=== PATIENT | male | born 1980 | race Hispanic/Latino ===

== ENCOUNTER 2018-08-26 21:56 | Emergency (ER) | payer SELFPAY ==
[~2018-08-26] VITALS: Ht 175.3 cm; Wt 193.2 kg
--- OUTSIDE RECORDS SUMMARY | 2018-08-26 21:59 | XMS REPORT ---
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 Allergies, Adverse Reactions, Alerts This patient has no known allergies or adverse reactions. Medications This patient has no known medications. Encounters Start Date/Time End Date/Time Encounter Type Admission Type Attending [facility] Care Department Encounter ID 2018-08-23 15:44:17 2018-08-23 15:44:17 Emergency [facility] MED [id number] 2018-08-20 00:00:00 2018-08-20 00:00:00 Outpatient [facility] [id number] 2018-07-26 00:00:00 2018-07-26 00:00:00 Outpatient [facility] [id number] 2018-06-07 00:00:00 2018-06-07 00:00:00 Outpatient [facility] [id number] 2018-04-25 00:00:00 2018-04-25 00:00:00 Outpatient [facility] [id number] 2018-04-05 09:55:41 2018-04-05 09:55:41 Outpatient [facility] [id number] 2018-04-05 08:50:48 2018-04-05 08:50:48 Outpatient [facility] [id number] 2018-03-01 10:01:47 2018-03-01 10:01:47 Outpatient [facility] [id number] 2018-02-17 03:42:24 2018-02-17 03:42:24 Emergency [facility] MED [id number] 2018-02-16 23:48:59 2018-02-16 23:48:59 Emergency [facility] [id number] 2018-02-16 22:10:34 2018-02-16 22:10:34 Emergency [facility] [id number] 2018-01-15 00:00:00 2018-01-15 00:00:00 Outpatient [facility] [id number] 2017-11-21 00:00:00 2017-11-21 00:00:00 Outpatient [facility] [id number] 2017-11-14 00:00:00 2017-11-14 00:00:00 Outpatient [facility] [id number] 2017-11-06 16:37:42 2017-11-06 16:37:42 Outpatient [facility] [id number] 2017-11-06 15:23:18 2017-11-06 15:23:18 Outpatient [facility] [id number] 2017-11-06 13:39:29 2017-11-06 13:39:29 Outpatient [facility] [id number] 2017-10-16 22:17:33 2017-10-16 22:17:33 Emergency [facility] [id number]
--- OUTSIDE RECORDS SUMMARY | 2018-08-26 21:59 | XMS REPORT | Clinical Summary ---
Author Author [facility] Organization [facility] Address Unknown Phone Unavailable Care Team Providers Care [place] Instructor Name Role Phone Christiano Miner MD PCP Allergies No Known Allergies Medications End Date Status Medication Sig Dispensed Refills Start Date Active pantoprazole (PROTONIX) Take 1 tablet 30 tablet 0 40 mg delayed release by mouth 2 tabletIndications: daily. Abdominal pain Active dicyclomine (BENTYL) 20 Take 1 tablet 20 tablet 0 mg tabletIndications: by mouth 3 2 Abdominal pain times daily as needed for Pain and Nausea. Active PHENTERMINE HCL 37.5 mg Take 37.5 mg 0 tablet by mouth every morning (before breakfast). Active furosemide (LASIX) 40 mg Take 40 mg by 0 tablet mouth daily. Active potassium chloride Take 20 mEq 0 (KLOR-CON) 20 mEq oral by mouth 2 packet times daily. Active amLODIPine (NORVASC) 10 Take 10 mg by 0 mg tablet mouth daily. Active ibuprofen (MOTRIN) 800 mg Take 1 tablet 60 tablet 1 tabletIndications: by mouth 8 Arthralgia, unspecified every 8 hours joint as needed for Pain. Active lisinopril (PRINIVIL) 20 Take 1 tablet 90 tablet 1 mg tabletIndications: by mouth 8 Essential hypertension daily. Active topiramate (TOPAMAX) 50 Take 1 tablet 180 tablet 1 mg tabletIndications: by mouth 2 8 Morbid obesity times daily. Active predniSONE (DELTASONE) 10 Take 1 tablet 10 tablet 0 mg tabletIndications: by mouth 8 Acute allergic reaction, daily. initial encounter Active loratadine (CLARITIN) 10 Take 1 tablet 90 tablet 0 mg tabletIndications: by mouth 8 Flu-like symptoms daily. Active codeine-guaiFENesin Take 5 mL by 120 mL 0 (CHERATUSSIN AC) 10-100 mouth 3 times 8 mg/5 mL syrupIndications: daily as Flu-like symptoms needed for Cough or Congestion. Active ibuprofen (MOTRIN) 400 mg Take 1 tablet 60 tablet 0 tabletIndications: by mouth 8 Chronic pain of both every 6 hours knees as needed for Pain. 04/05/2018 Discontinued traMADol (ULTRAM) 50 mg Take 1 tablet 30 tablet 0 tabletIndications: by mouth 3 Fracture, tooth every 6 hours as needed for Pain. 04/05/2018 Discontinued HYDROcodone-acetaminophen Take 1 tablet 30 tablet 0 (NORCO) 10-325 mg by mouth 3 tabletIndications: Caries every 6 hours as needed for Pain. 04/05/2018 Discontinued lisinopril-hydrochlorothi Take 1 tablet 0 azide (PRINZIDE, by mouth ZESTORETIC) 20-25 mg per daily. tablet Active Problems Problem Noted Date Essential hypertension 11/06/2017 Fracture, tooth 07/12/2012 Pilonidal cyst 03/14/2011 Dizziness 02/23/2011 Increased serum lipase level 09/29/2009 Morbid obesity 09/29/2009 Edema of leg Nonintractable headache Encounters Care Team Description Date Type Specialty Raulito Miller MD Epistaxis (Primary Dx) 08/23/2018 Emergency Emergency Medicine 08/23/2018 Travel Jennifer Berman MD Morbid obesity 04/06/2018 Orders Only Family Practice Jennifer Berman MD Morbid obesity 04/05/2018 Lab Appointment Lab Jennifer Berman MD Morbid obesity (Primary Dx); Varicose veins of both lower extremities with pain; Chronic pain of both knees; Flu-like symptoms; Acute allergic reaction, initial encounter; Essential hypertension 04/05/2018 Office Visit Family Practice Jennifer Berman MD Morbid obesity 04/05/2018 Orders Only Family Practice Alyssa Rocha 04/05/2018 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 Travel Alyssa Rocha [employer]; Pre-clinic Chart Review 03/06/2018 Telephone Social Work Meet Fabian MD Dizziness (Primary Dx); Chronic midline low back pain without sciatica; Essential hypertension; Arthralgia, unspecified joint; Morbid obesity with BMI of 60.0-69.9, adult; Leg swelling, bilateral; Needs flu shot 03/01/2018 Office Visit Family Practice Jennifer Marsh MD Leoni, James F, MD Chronic midline low back pain without sciatica (Primary Dx); Dizziness; Edema of leg; Nonintractable headache, unspecified chronicity pattern, unspecified headache type 02/17/2018 Emergency Emergency Medicine Valerie Graham Appointment Related Questions 11/13/2017 Telephone Nutrition Jeremie Cedeno MD Results 11/07/2017 Telephone Family Practice Jeremie Cedeno MD 11/06/2017 Ancillary Radiology Procedure Jeremie Cedeno MD Barning, Kenneth, MD Preventative health care (Primary Dx); Swelling of lower extremity; Essential hypertension; Arthralgia, unspecified joint; Morbid obesity with BMI of 50.0-59.9, adult 11/06/2017 Office Visit Family [facility] Valerie Graham 11/06/2017 Nutrition Nutrition Licha Silva MD Hypokalemia due to loss of potassium (Primary Dx); Abdominal pain, unspecified abdominal location 10/16/2017 Emergency Emergency Medicine - 10/17/2017 after 08/25/2017 Immunizations Name Dates Previously Given Next Due Influenza, 03/01/2018 Vaccine<FLUCELVAX>(Multi- Dose) Family History Medical History Relation Name Comments Diabetes Father Other Father Diabetes Mother Relation Name Status Comments Father Alive Mother Alive Social History Date Tobacco Use Types Packs/Day Years Used Current Every Day Smoker Cigarettes 0.25 0.5 Smokeless Tobacco: Never Used Tobacco Cessation: Ready to Quit: No; Counseling Given: Yes Comments: Smokes 3 cigarettes a day Alcohol Use Drinks/Week oz/Week Comments No Sex Assigned at Date Recorded Not on file Industry Job Start Date Occupation Not on file Not on file Not on file Travel End Travel History Travel Start No recent travel history available. Last Filed Vital Signs Time Taken Vital Sign Reading 08/23/2018 11:45 AM CDT Blood Pressure 150/89 08/23/2018 11:45 AM CDT Pulse 80 08/23/2018 11:45 AM CDT Temperature 36.7 C (98.1 F) 08/23/2018 11:45 AM CDT Respiratory Rate 18 08/23/2018 11:45 AM CDT Oxygen Saturation 98% - Inhaled Oxygen - Concentration 08/23/2018 11:45 AM CDT Weight 202.5 kg (446 lb 8 oz) 04/05/2018 8:51 AM CAR SHUNTER Height 175.3 cm (5' 9") 04/05/2018 8:51 AM CAR SHUNTER Body Mass Index 65.94 Plan of Treatment Health Maintenance Due Date Last Done Comments IMM Influenza Seasonal 01/29/2019 03/01/2018 Oct to June (>/=19 yrs) Procedures Comments Procedure Name Priority Date/Time Associated Diagnosis 12 LEAD EKG Routine 08/23/2018 11:53 AM CDT ACTH, PLASMA Routine 04/05/2018 Morbid obesity 9:50 AM CAR SHUNTER RENIN, PLASMA Routine 04/05/2018 Morbid obesity 9:50 AM CAR SHUNTER CORTISOL, TOTAL Routine 04/05/2018 Morbid obesity 9:50 AM CAR SHUNTER ALDOSTERONE Routine 04/05/2018 Morbid obesity 9:49 AM CAR SHUNTER FREE T4 Routine 04/05/2018 Morbid obesity 9:49 AM CAR SHUNTER TSH Routine 04/05/2018 Morbid obesity 9:49 AM CAR SHUNTER LIVER PROFILE STAT 02/17/2018 6:51 AM CDT UA CHEMISTRIES STAT 02/17/2018 5:40 AM CDT 12 LEAD EKG Routine 02/17/2018 5:15 AM CDT DUPLEX DOPPLER LOWER STAT 02/17/2018 EXTREMITY VENOUS, 12:31 AM CDT BILATERAL XRAY SPINE LUMBOSACRAL STAT 02/16/2018 Chronic midline low back AP-LAT 10:31 PM CDT pain without sciatica BMP POC Routine 02/16/2018 10:10 PM CDT CBC/DIFF STAT 02/16/2018 10:07 PM CDT TSH Routine 11/06/2017 4:29 PM CDT LIVER PROFILE Routine 11/06/2017 4:29 PM CDT LIPID PROFILE Routine 11/06/2017 4:29 PM CDT HIV-1/HIV-2 ROUTINE Routine 11/06/2017 SCREENING 4:29 PM CDT HEMOGLOBIN A1C Routine 11/06/2017 4:29 PM CDT CBC/DIFF Routine 11/06/2017 4:29 PM CDT BASIC METABOLIC PANEL Routine 11/06/2017 4:29 PM CDT XRAY CHEST 2 VIEWS Routine 11/06/2017 Morbid obesity with BMI 3:29 PM CDT of 50.0-59.9, adult HEPATITIS PANEL Routine 11/06/2017 Preventative health care 3:12 PM CDT UA CHEMISTRIES STAT 10/17/2017 1:23 AM CDT BMP POC Routine 10/17/2017 1:16 AM CDT HIV-1/HIV-2 ROUTINE STAT 10/17/2017 SCREENING 1:08 AM CDT LIPASE STAT 10/17/2017 1:08 AM CDT LIVER PROFILE STAT 10/17/2017 1:08 AM CDT CBC/DIFF STAT 10/17/2017 1:08 AM CDT after 08/25/2017 Results * 12 LEAD EKG (08/23/2018 11:53 AM CDT) [facility] Date:2018-08-23 Pat Name: DENZEL FONSECA Department: [id number] Room: 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[id number] Requested By: KELI Turpin Order Number: [id number] Reading MD: Tulio Campos Measurements Intervals [place] Rate: 70 P:37 IA: 175 QRS: 14 QRSD: 157 T: 52 QT: 427 QTc:463 Interpretive Statements SINUS RHYTHM RIGHT BUNDLE BRANCH BLOCK Abnormal ECG Electronically Signed On 08-23-2018 16:36:16 CDT by Tulio Campos Performing Organization Address [facility] Phone Number SMS * ACTH, PLASMA (04/05/2018 9:50 AM CAR SHUNTER) Pathologist [facility] ACTH, Plasma 10.5 LABORATORY Reference range: 7.2 to 63.3 CORPORATION OF Unit: pg/mL [place] (note) ACTH reference interval for samples collected between 7 and 10 AM. Specimen Blood Performing Organization Address [facility] Phone Number [facility] CORPORATION OF [address] [place] [address] [place] 145 * RENIN, PLASMA (04/05/2018 9:50 AM CAR SHUNTER) Pathologist [facility] Renin, Plasma 1.051 LABORATORY Reference range: 0.167 to CORPORATION OF 5.380 [place] Unit: ng/mL/hr (note) This test was developed and its performance characteristics determined by [facility]. It has not been cleared or approved by the Food and Drug Administration. Specimen Blood Performing Organization Address [facility] Phone Number [facility] [address] [place] [address] [place] 145 * CORTISOL, TOTAL (04/05/2018 9:50 AM CAR SHUNTER) [facility] Cortisol, Total 6.6 3.44 - 22.45 mcg/dL BT MAIN-STATION 1 Specimen Blood Performing Organization Address [facility] Phone Number [employer] BT MAIN-STATION 1 * ALDOSTERONE (04/05/2018 9:49 AM CAR SHUNTER) [facility] Aldosterone 22.5 ng/dL LABORATORY Comment: CORPORATION OF Reference range: 0.0 to 30.0 [place] (note) This test was developed and its performance characteristics determined by [facility]. It has not been cleared or approved by the Food and Drug Administration. Specimen Blood Performing Organization Address [facility] Phone Number [facility] [address] [facility] [place] [address] [place] 145 * TSH (04/05/2018 9:49 AM CAR SHUNTER) Only the most recent of 2 results within the time period is included. [facility] TSH 1.96 0.57 - 3.74 uIU/mL BT MAIN-STATION 1 Specimen Blood Performing Organization Address [facility] Phone Number MISYS BT MAIN-STATION 1 * FREE T4 (04/05/2018 9:49 AM CAR SHUNTER) Free T4 0.85 0.61 - 1.18 ng/dl BT MAIN-STATION 1 Specimen Blood Performing Organization Address [facility] Phone Number MISYS BT MAIN-STATION 1 * LIVER PROFILE (02/17/2018 6:51 AM CDT) Only the most recent of 3 results within the time period is included. T Protein 6.6 6.0 - 8.3 g/dL BT MAIN-STATION 1 Albumin 3.7 (L) 4.2 - 5.5 g/dL BT MAIN-STATION 1 T Bilirubin 0.8 0.2 - 1.2 mg/dL BT MAIN-STATION 1 Alk Phos 77 34 - 104 U/L BT MAIN-STATION 1 AST 28 13 - 39 U/L BT MAIN-STATION 1 ALT 32 7 - 52 U/L BT MAIN-STATION 1 D Bilirubin 0.1 0.0 - 0.2 mg/dL BT MAIN-STATION 1 Specimen Blood Performing Organization Address [facility] Phone Number MISYS BT MAIN-STATION 1 * UA CHEMISTRIES (02/17/2018 5:40 AM CDT) Only the most recent of 2 results within the time period is included. Color Yellow BT MAIN-STATION 2 Clarity Clear BT MAIN-STATION 2 Spec [place] 1.027 1.001 - 1.035 BT MAIN-STATION 2 pH 5.0 5 - 8 BT MAIN-STATION 2 Protein 1+ (A) NEG BT MAIN-STATION 2 Glucose Negative NEG BT MAIN-STATION 2 Ketone Negative NEG BT MAIN-STATION 2 Bilirubin Negative NEG BT MAIN-STATION 2 Nitrate Negative NEG BT MAIN-STATION 2 Urobilinogen <1.0 0.2 - 1.0 EU/dL BT MAIN-STATION 2 Leukocyte Negative NEG BT MAIN-STATION 2 Blood Negative NEG BT MAIN-STATION 2 RBC <1 0 - 4 /HPF BT MAIN-STATION 2 WBC <1 0 - 5 /HPF BT MAIN-STATION 2 Epithelial Cell 1 /HPF BT MAIN-STATION 2 Mucous Present BT MAIN-STATION 2 Hyaline Cast 1 /LPF BT MAIN-STATION 2 Specimen Urine Performing Organization Address City/[facility] Phone Number MISYS BT MAIN-STATION 2 * 12 LEAD EKG (02/17/2018 5:15 AM CDT) 12 LEAD EKG FOR SMS [facility] Test Date:2018-02-17 Pat Name: DENZEL FONSECA Department: Room: 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 Measurements Intervals [place] Rate: 62 P:37 IA: 189 QRS: -9 QRSD: 159 T: 0 QT: 401 QTc:409 Interpretive Statements SINUS RHYTHM WITH MARKED SINUS ARRHYTHMIA RIGHT BUNDLE BRANCH BLOCK Electronically Signed On 02-17-18 05:17:21 CDT by Maliha Barger M.D. Performing Organization Address City/[facility] Phone Number SMS * DUPLEX DOPPLER LOWER EXTREMITY VENOUS, BILATERAL (02/17/2018 12:31 AM CDT) Impressions Performed At IMPRESSION: SMS No evidence of deep venous thrombosis above the bilateral calves. If the report is "FINALIZED" it indicates that the attending/staff radiologist has reviewed the images and agrees with the resident's interpretation. Dictated By: Katrin Simpson MD, 02/17/2018 12:41 AM I have reviewed the study and agree with the findings in this report. Signed By: Nestor Odonnell MD, 02/17/2018 1:11 AM Narrative Performed At EXAM: Bilateral Lower Extremity Venous Duplex Ultrasound SMS INDICATION: leg pain COMPARISON: None TECHNIQUE: Hannon scale, color Doppler and spectral waveform analysis of the bilateral lower extremities deep venous system was performed. FINDINGS: Right Lower Extremity: Common Femoral: Fully compressible with normal spontaneous waveforms. Proximal Greater Saphenous: Fully compressible. Femoral: Fully compressible with normal spontaneous waveforms.Normal response to augmentation. Proximal Deep Femoral: Normal spontaneous waveforms. Popliteal: Fully compressible with normal spontaneous waveforms. Left Lower Extremity: Common Femoral: Fully compressible with normal spontaneous waveforms. Proximal Greater Saphenous: Fully compressible. Femoral: Fully compressible with normal spontaneous waveforms.Normal response to augmentation. Proximal Deep Femoral: Normal spontaneous waveforms. Popliteal: Fully compressible with normal spontaneous waveforms. Procedure Note Interface, Rad/Mammog In - 02/17/2018 1:16 AM CDT EXAM: Bilateral Lower Extremity Venous Duplex Ultrasound INDICATION: leg pain COMPARISON: None TECHNIQUE: Hannon scale, color Doppler and spectral waveform analysis of the bilateral lower extremities deep venous system was performed. FINDINGS: Right Lower Extremity: Common Femoral: Fully compressible with normal spontaneous waveforms. Proximal Greater Saphenous: Fully compressible. Femoral: Fully compressible with normal spontaneous waveforms. Normal response to augmentation. Proximal Deep Femoral: Normal spontaneous waveforms. Popliteal: Fully compressible with normal spontaneous waveforms. Left Lower Extremity: Common Femoral: Fully compressible with normal spontaneous waveforms. Proximal Greater Saphenous: Fully compressible. Femoral: Fully compressible with normal spontaneous waveforms. Normal response to augmentation. Proximal Deep Femoral: Normal spontaneous waveforms. Popliteal: Fully compressible with normal spontaneous waveforms. IMPRESSION IMPRESSION: No evidence of deep venous thrombosis above the bilateral calves. If the report is "FINALIZED" it indicates that the attending/staff radiologist has reviewed the images and agrees with the resident's interpretation. Dictated By: Katrin Simpson MD, 02/17/2018 12:41 AM I have reviewed the study and agree with the findings in this report. Signed By: Nestor Odonnell MD, 02/17/2018 1:11 AM Performing Organization Address City/State/Zipcode Phone Number SMS * XRAY SPINE LUMBOSACRAL AP-LAT (02/16/2018 10:31 PM CDT) Impressions Performed At IMPRESSION: SMS 1.No acute osseous abnormality. 2.Mild facet arthropathy of the lumbosacral spine, as detailed above. A "PRELIMINARY" report was made available via [employer] at the time of dictation by the resident indicated below. If the report is described as "FINALIZED" it indicates the attending/staff radiologist below has reviewed the images and agrees with the resident's interpretation. Dictated By: Fer York MD, 02/16/2018 10:47 PM I have reviewed the study and agree with the findings in this report. Signed By: Nestor Odonnell MD, 02/17/2018 1:05 AM Narrative Performed At EXAM: Lumbar spine radiograph, 3 views SMS HISTORY: low back pain COMPARISON: None DISCUSSION: Evaluation is partially limited due to increased soft tissue attenuation. Five non-rib bearing lumbar vertebral bodies. The alignment is within normal limits. No displaced fracture or compression deformity. No disc space narrowing. Mild facet arthrosis from L3 to S1. Procedure Note Interface, Rad/Mammog In - 02/17/2018 1:10 AM CDT EXAM: Lumbar spine radiograph, 3 views HISTORY: low back pain COMPARISON: None DISCUSSION: Evaluation is partially limited due to increased soft tissue attenuation. Five non-rib bearing lumbar vertebral bodies. The alignment is within normal limits. No displaced fracture or compression deformity. No disc space narrowing. Mild facet arthrosis from L3 to S1. IMPRESSION IMPRESSION: 1. No acute osseous abnormality. 2. Mild facet arthropathy of the lumbosacral spine, as detailed above. A "PRELIMINARY" report was made available via [employer] at the time of dictation by the resident indicated below. If the report is described as "FINALIZED" it indicates the attending/staff radiologist below has reviewed the images and agrees with the resident's interpretation. Dictated By: Fer York MD, 02/16/2018 10:47 PM I have reviewed the study and agree with the findings in this report. Signed By: Nestor Odonnell MD, 02/17/2018 1:05 AM Performing Organization Address City/State/[facility] Phone Number SMS * BMP POC (02/16/2018 10:10 PM CDT) Only the most recent of 2 results within the time period is included. CO2 POC 30 21 - 32 mmol/L BT MAIN-STATION 1 Chloride POC 101 98 - 107 mmol/L BT MAIN-STATION 1 Potassium POC 3.7 3.50 - 5.10 mmol/L BT MAIN-STATION 1 Sodium POC 141 136 - 145 mmol/L BT MAIN-STATION 1 Glucose POC 89 74 - 106 mg/dL BT MAIN-STATION 1 Urea Nitrogen 19 (H) 7 - 18 mg/dL BT MAIN-STATION POC 1 Creatinine POC 0.8 0.6 - 1.3 mg/dL BT MAIN-STATION 1 Calcium Ionized 1.11 (L) 1.15 - 1.29 mmol/L BT MAIN-STATION POC 1 Hemoglobin POC 14.3 14.0 - 18.0 g/dL BT MAIN-STATION 1 Hematocrit POC 42.0 40.0 - 54.0 % BT MAIN-STATION 1 GFR, Estimated >60 mL/min/1.73 m2 BT MAIN-STATION 1 GFR, Estim, >60 mL/min/1.73 m2 BT MAIN-STATION Afr-Am 1 Performing Organization Address City/State/Zipcode Phone Number MISYS BT MAIN-STATION 1 * CBC/DIFF (02/16/2018 10:07 PM CDT) Only the most recent of 3 results within the time period is included. WBC 11.6 4.5 - 12.0 K/uL BT MAIN-STATION 2 RBC 4.67 4.60 - 6.20 M/uL BT MAIN-STATION 2 Hemoglobin 13.2 (L) 14.0 - 18.0 g/dL BT MAIN-STATION 2 Hematocrit 40.0 40.0 - 54.0 % BT MAIN-STATION 2 MCV 86 82 - 92 fL BT MAIN-STATION 2 MCH 28.3 27.0 - 31.0 pg BT MAIN-STATION 2 MCHC 33.0 32.0 - 36.0 g/dL BT MAIN-STATION 2 RDW 39.4 35.1 - 43.9 fL BT MAIN-STATION 2 Platelet 238 150 - 400 K/uL BT MAIN-STATION 2 Mean Platelet 9.8 9.4 - 12.4 fL BT MAIN-STATION Volume 2 Percent NRBC 0.0 BT MAIN-STATION 2 Absolute NRBC 0.00 BT MAIN-STATION 2 Neutrophil 68.6 (H) 34.0 - 67.9 % BT MAIN-STATION 2 Lymphocyte 22.2 21.8 - 50.0 % BT MAIN-STATION 2 Monocyte 6.6 5.3 - 12.0 % BT MAIN-STATION 2 Eosinophil 1.5 0.8 - 5.0 % BT MAIN-STATION 2 Basophil 0.3 0.2 - 1.2 % BT MAIN-STATION 2 Pct Immat Gran 0.8 (H) 0.0 - 0.5 BT MAIN-STATION 2 Neutrophil, Abs 7.98 (H) 1.78 - 5.36 K/uL BT MAIN-STATION 2 Lymphocyte, Abs 2.58 1.32 - 3.57 K/uL BT MAIN-STATION 2 Monocyte, Abs 0.77 0.30 - 0.82 K/uL BT MAIN-STATION 2 Eosinophil, Abs 0.17 0.04 - 0.54 K/uL BT MAIN-STATION 2 Basophil, Abs 0.04 0.01 - 0.08 K/uL BT MAIN-STATION 2 Absol Immat 0.09 (H) 0.00 - 0.03 K/uL BT MAIN-STATION Gran 2 Specimen Blood Performing Organization Address City/[facility] Phone Number MISYS BT MAIN-STATION 2 * HIV-1/HIV-2 ROUTINE SCREENING (11/06/2017 4:29 PM CDT) Only the most recent of 2 results within the time period is included. HIV-1/HIV-2 Negative NEG BT MAIN-STATION 4 Performing Organization Address [facility] Phone Number MISYS BT MAIN-STATION 4 * HEMOGLOBIN A1C (11/06/2017 4:29 PM CDT) Hemoglobin A1c 5.9 4.3 - 6.1 % BT DIAGNOSTIC IMMUNOLOGY Est Average 122.6 mg/dL BT DIAGNOSTIC Gluc IMMUNOLOGY Performing Organization Address [facility] Phone Number MISYS BT DIAGNOSTIC IMMUNOLOGY * LIPID PROFILE (11/06/2017 4:29 PM CDT) Cholesterol 156 mg/dL BT MAIN-STATION Comment: 1 REFERENCE RANGE: Desirable: <200 mg/dL Borderline: 200-240 mg/dL High Risk: >240 mg/dL Triglyceride 171 (H) <150 mg/dL BT MAIN-STATION Comment: 1 REFERENCE RANGE: Normal: <150 mg/dL Borderline High: 150-199 mg/dL High: 200-499 mg/dL Very High: >yf=709 mg/dL HDL 35 mg/dL BT MAIN-STATION Comment: 1 Increased CHD risk: <40 mg/dL Decreased CHD risk: >60 mg/dL LDL 87 mg/dL BT MAIN-STATION Comment: 1 REFERENCE RANGE: Optimal: <100 mg/dL Near Optimal: 100-129 mg/dL Borderline High: 130-159 mg/dL High: 160-189 mg/dL Very High: >qs=683 mg/dL Performing Organization Address [facility] Phone Number MISYS BT MAIN-STATION 1 * BASIC METABOLIC PANEL (11/06/2017 4:29 PM CDT) CO2 30 21 - 31 mmol/L BT MAIN-STATION 1 Chloride 99 98 - 107 mmol/L BT MAIN-STATION 1 Potassium 3.2 (L) 3.5 - 5.1 mmol/L BT MAIN-STATION 1 Sodium 141 136 - 145 mmol/L BT MAIN-STATION 1 Glucose 96 70 - 110 mg/dL BT MAIN-STATION 1 Urea Nitrogen 19 7 - 25 mg/dL BT MAIN-STATION 1 Creatinine 0.90 0.7 - 1.3 mg/dL BT MAIN-STATION 1 Anion Gap 12 BT MAIN-STATION 1 Calcium 9.5 8.6 - 10.3 mg/dL BT MAIN-STATION 1 GFR, Estimated >60 mL/min/1.73 m2 BT MAIN-STATION 1 GFR, Estim, >60 mL/min/1.73 m2 BT MAIN-STATION Afr-Am 1 Performing Organization Address [facility] Phone Number MISYS BT MAIN-STATION 1 * XRAY CHEST 2 VIEWS (11/06/2017 3:29 PM CDT) Impressions Performed At IMPRESSION: SMS 1.No acute cardiothoracic findings. Signed By: Yasmani Yeboah MD, 11/07/2017 8:21 AM Narrative Performed At EXAM: XRAY CHEST 2 VIEWS [facility] DATE: 11/06/2017 3:29 PM INDICATION: Morbid obesity with HTN COMPARISON: 09/05/2009 FINDINGS: Devices, Lines, and Tubes: None. Heart and Mediastinum: The cardiomediastinal silhouette is unremarkable. Lungs and Pleura: No significant pleural effusion, pneumothorax, or focal consolidation. Bones and Soft Tissues: No acute findings. Procedure Note Interface, Rad/Mammog In - 11/07/2017 8:26 AM CDT EXAM: XRAY CHEST 2 VIEWS DATE: 11/06/2017 3:29 PM INDICATION: Morbid obesity with HTN COMPARISON: 09/05/2009 FINDINGS: Devices, Lines, and Tubes: None. Heart and Mediastinum: The cardiomediastinal silhouette is unremarkable. Lungs and Pleura: No significant pleural effusion, pneumothorax, or focal consolidation. Bones and Soft Tissues: No acute findings. IMPRESSION IMPRESSION: 1. No acute cardiothoracic findings. Signed By: Yasmani Yeboah MD, 11/07/2017 8:21 AM Performing Organization Address [facility] [place] SMS * HEPATITIS PANEL (11/06/2017 3:12 PM CDT) HCV IgG Negative NEG BT MAIN-STATION 4 HBsAg Negative NEG BT MAIN-STATION 4 HAV, IgM Negative NEG BT MAIN-STATION 4 HBcAb, IgM Negative NEG BT MAIN-STATION 4 Specimen Blood Performing Organization Address [facility] Phone Number MISYS BT MAIN-STATION 4 * LIPASE (10/17/2017 1:08 AM CDT) Lipase 109 73 - 393 U/L [facility] MAIN-STATION 2 Specimen Blood Performing Organization Address City/State/Zipcode Phone Number [facility] MA[facility] 2 after 08/25/2017 Insurance Type Payer Benefit Subscriber ID Effective Phone Address Plan / Dates Group [place]- [phone] [address] INDIG[place] FAMILY [id number] [place], [place] [id number] [employer] PLAN [facility] PLAN xxxxxx 2017- [phone] [id number] [id number] 2018 [place] [address] (Self)
== END 2018-08-26 22:52 | disposition left against medical advice (07) ==
LOC: ER 21:56
DX: R04.0 Epistaxis (principal)